=== PATIENT | female | born 1930 | race Caucasian/White ===

== ENCOUNTER 2017-07-13 12:00 | Observation (INO) | payer OTHER, MEDICARE ==
[~2017-07-13] VITALS: Ht 152.4 cm; Wt 63.5 kg
--- NOTE | 2017-07-13 12:38 | ED SYNCOPE COMPLAINT ---
History of Present Illness General Chief Complaint: Syncope and Near-Syncope Stated Complaint: BIBA FOR ?SYNCOPE Source: patient, family, EMS Exam Limitations: no limitations Vital Signs & Intake/Output Vital Signs & Intake/Output Vital Signs Date Time Temp Pulse Resp B/P B/P Pulse O2 O2 Flow FiO2 Mean Ox Delivery Rate 07/14 1220 64 150/80 07/14 0832 64 120/64 07/14 0638 98.5 65 18 112/62 95 Room Air 07/13 2337 98.4 68 16 162/80 96 Room Air 07/13 2017 98.8 70 18 132/80 94 Room Air 07/13 1926 97.8 61 20 171/70 96 Room Air ED Intake and Output 07/14 0000 07/13 1200 Intake Total 200 Output Total Balance 200 Intake, Oral 200 Patient 140 lb Weight Weight Estimated Measurement Method Allergies Coded Allergies: No Known Allergies (07/13/17) Reconcile Medications Atorvastatin Calcium 10 MG TABLET 1 TAB PO QPM CHOLESTEROL (Reported) Calcium Carbonate/Vitamin D3 (Calcium 500 + D Tablet) (Unknown Strength) TABLET (Unknown Dose) PO DAILY SUPPLEMENT (Reported) Dipyridamole W/ Aspirin (Aggrenox 25 MG-200 MG Capsule) 25 MG-200 MG CPMP.12HR 1 CAP PO BID Blood thin (Reported) Metoprolol Succinate 25 MG TAB 1 TAB PO DAILY HEART/BP (Reported) Mirtazapine 15 MG TABLET 1 TAB PO QPM SLEEP (Reported) Triage Note: 87 Y/O FEMALE BIBA FROM HOME FOR EVAL OF ? SYNCOPE (PER EMS). PER TELECOMMUNICATIONS ANALYST, PT WAS "SITTING AT TABLE AND HAD LOC WITNESSED BY FAMILY". PT ONLY SPEAKS [facility]. ARRIVES ALERT, SMILING STATING "HOW ARE YOU. IM OK". NO SIGNS PAIN OR DISCOMFORT NOTED. NO SIGNS TRAUMA NOTED. EQUAL FACIAL SYMMETRY APPRECIATED. AWAITING FAMILY FOR FURTHER INFORMATION/HISTORY AWAITING EVAL. Triage Nurses Notes Reviewed? yes Timing: single episode today Context: WHILE COOKING AT HOME Loss of Consciousness: no loss of consciousness HPI: Patient presents for evaluation of a fainting episode that occurred shortly before arrival. According the family the patient was at home cooking breakfast when she began to "tip" to one side. She became very pale and also experienced a transient facial droop. Her family was able to catch her before she fell and she was brought to the couch where she began feeling better and essentially returned back to baseline. The whole episode lasted about 2-3 minutes. The patient has poor recall of the episode but apparently did not suffer any chest pain heart palpitations or other symptoms prior to the onset of her syncope. There is no associated tremors as noted by the family. He does have a past history of heart valve disease with a known murmur. She was evaluated on a routine visit with a primary care physician yesterday. Past History Travel History Traveled to [place] past 21 day No Medical History Any Pertinent Medical History? see below for history Neurological: CVA EENT: NONE Cardiovascular: hypertension, ? IRREGULAR HEART BEAT PER EMS ? 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 No Review of Systems Review of Systems Constitutional: Reports: no symptoms. EENTM: Reports: no symptoms. Respiratory: Reports: no symptoms. Cardiovascular: Reports: syncope. GI: Reports: no symptoms. Genitourinary: Reports: no symptoms. Musculoskeletal: Reports: no symptoms. Skin: Reports: no symptoms. Neurological/Psychological: Reports: no symptoms. All Other Systems: Reviewed and Negative Physical Exam Physical Exam Cranial Nerves: SEE BELOW Comments: Gen.: Well-nourished, well-developed, no acute respiratory distress. Head: Normocephalic, atraumatic. Eyes: Normal inspection bilaterally Ears: Normal inspection bilaterally Nose: Normal inspection Throat/mouth : Moist mucosa Neck: Supple, full range of motion, no goiter, decreased left carotid pulse, no carotid bruits Heart: Regular rate and rhythm, crescendo decrescendo pansystolic murmur throughout the precordium Lungs: Clear to auscultation bilaterally with normal air entry Chest: Nontender Back: Normal range of motion Abdomen: Soft, nontender, nondistended, normal bowel sounds Extremities: Normal range of motion grossly, equal radial pulses, no cyanosis clubbing or edema Neurologic: Cranial nerves grossly intact, speech is clear Skin: warm and dry Psychiatric: Calm, cooperative, no apparent delusions or hallucinations Core Measures ACS in differential dx? No CVA/TIA Diagnosis: No Sepsis Present: No Sepsis Focused Exam Completed? No Progress Differential Diagnosis: aortic valve, orthostatic syncope, seizure, vasodepressor syncope Plan of Care: Orders Procedure Date/time Status Heart Healthy Diet 07/14 B Active Change service to 07/14 0729 Active CBC WITHOUT DIFFERENTIAL 07/14 0600 Complete BASIC ELECTROLYTES PLUS BUN&CR 07/14 0600 Complete LIPID PANEL 07/14 0120 Complete Nursing Misc 07/14 0112 Active TROPONIN LEVEL 07/14 0100 Complete EKG 07/14 0100 Active Discharge Patient 07/14 UNK Active Lab Add-on Test 07/14 UNK Active MISTAKE 07/14 UNK Active ELECTROENCEPHALOGRAM 07/14 UNK Active ECHOCARDIOGRAM 07/14 UNK Active Pathway - chart 07/13 2232 Active Teach/Educate 07/13 2010 Active Pain Treatment and Response 07/13 2010 Active Nutritional Intake, Monitor 07/13 2010 Active Isolation 07/13 2010 Active Patient Care Conference 07/13 2010 Active Activity/Ambulation 07/13 2010 Active EKG 07/13 1928 Active TOTAL IRON BINDING CAPACITY 07/13 1925 Complete FERRITIN 07/13 1925 Complete SERUM IRON 07/13 1925 Complete TROPONIN LEVEL 07/13 1915 Complete Patient Data 07/[address] in observation 07/13 1742 Active Misc Message 07/13 1742 Active ED Holding Orders 07/13 1742 Active Vital Signs 07/13 1742 Active Code Status 07/13 1742 Active PROLACTIN 07/13 1303 Complete Intake & Output 07/13 1209 Active Lab Add-on Test 07/13 UNK Active Current Medications Sig/Solomon Start time Last Medication Dose Stop Time Status Admin Oxycodone HCl 5 MG Q6H PRN 07/13 2245 CAN (Roxicodone) Laboratory Tests 07/14/17 0651: Anion Gap 12, Estimated GFR 52 L, BUN/Creatinine Ratio 33.0 H, TSH &T3 &Free T4 Intrp 0.770, CBC w Diff NO MAN DIFF REQ, RBC 3.29 L, MCV 94.9, MCH 31.6 H, RDW 13.9, MPV 8.6, Gran % 64.4, Lymphocytes % 22.5, Monocytes % 9.9 H, Eosinophils % 2.7, Basophils % 0.5, Absolute Granulocytes 3.7, Absolute Lymphocytes 1.3, Absolute Monocytes 0.6, Absolute Eosinophils 0.2, Absolute Basophils 0, PUBS MCHC 33.3 07/14/17 0120: Troponin I 0.03, Triglycerides 96, Cholesterol 119, LDL Cholesterol, Calc 46 L, HDL Cholesterol 54, Cholesterol/HDL Ratio 2 07/13/17 1925: Iron 38, TIBC 292, Ferritin 97.1, Troponin I 0.02 Diagnostic Imaging: Discussed w/RAD: Radiology Read, CT Scan. Radiology Impression: PATIENT: LASHAUN CLARK PRESENT AGE: 87 PATIENT ACCOUNT NO: [id number] : 30 LOCATION: [facility], [place] ORDERING PHYSICIAN: Jonathan Romano MD SERVICE DATE: 07/13/17 EXAM TYPE : CAT - CT HEAD WO IV CONTRAST EXAMINATION: CT HEAD WITHOUT CONTRAST CLINICAL INFORMATION: Near syncope. History of cardiac arteries. Assess for CVA or mass. COMPARISON: CT scans of the head 07/25/2008 and 02/29/2008. TECHNIQUE: Contiguous axial imaging was performed from the skull base to vertex without intravenous administration of contrast. DLP: 620.91 mGy-cm FINDINGS: There is no evidence of acute intracranial hemorrhage or territorial infarction. No abnormal mass effect or midline shift is seen. Sanchez to white matter differentiation is well preserved. No extra-axial fluid collections are identified. There is mild increase in the prominence of the ventricles without commensurate sulcal prominence when compared to the prior studies which raises the possibility of normal pressure hydrocephalus in the correct clinical setting. There are areas of low attenuation in the right caudate head consistent with sequelae of chronic lacunar infarcts, with ex vacuo dilatation of the anterior horn of the right lateral ventricle, demonstrated on prior imaging. There is low-attenuation in the posterior right basal ganglia consistent with an old infarct. There have been bilateral lens extractions. There are extensive atheromatous calcifications of the cavernous internal carotid arteries bilaterally. There are no acute osseous findings. There are degenerative changes of the bilateral temporomandibular joints. The soft tissues are normal. The mastoid air cells and visualized portions of the paranasal sinuses are well aerated. IMPRESSION: 1. There is interval increase in the prominence of the ventricles without commensurate sulcal prominence, raising the possibility of normal pressure hydrocephalus in the correct clinical setting. 2. There are sequelae of chronic infarcts in multiple areas as described above. 3. There are no acute bleeds or territorial infarcts. DICTATED BY: Carson Chaudhari MD DATE/TIME DICTATED:07/13/171344 BLUE LINE OPERATOR:ADRIÁN DATE/TIME TRANSCRIBED:07/13/171344 CONFIDENTIAL, DO NOT COPY WITHOUT APPROPRIATE AUTHORIZATION. <Electronically signed in Other Vendor System> SIGNED BY: Carson Chaudhari MD 07/13/17 1357 CXR Impression: PATIENT: LASHAUN CLARK PRESENT AGE: 87 PATIENT ACCOUNT NO: [id number] : 30 LOCATION: [facility], [place] ORDERING PHYSICIAN: Jonathan Romano MD SERVICE DATE: 07/13/17 EXAM TYPE: RAD - XRY-PORTABLE CHEST XRAY EXAMINATION: XR PORTABLE CHEST CLINICAL INFORMATION: Near syncope. COMPARISON: Chest radiograph done on 07/25/2008. TECHNIQUE: Portable frontal view of the chest was obtained. FINDINGS: Both lung ventura are symmetrically expanded and appear clear. The cardiomediastinal silhouette is within normal limits. There is no pleural effusion present. Multiple surgical clips are seen projecting at infraaxillary region bilaterally, unchanged. Soft tissue calcifications are seen projecting overlying the right humeral head, most consistent with calcific rotator cuff tendinitis versus bursitis or combination thereof. The visualized upper abdomen is unremarkable. IMPRESSION: No acute cardiopulmonary disease. DICTATED BY: Ruslan Dee MD DATE/TIME DICTATED:1352 BLUE LINE OPERATOR:ADRIÁN DATE/TIME TRANSCRIBED:07/13/171352 CONFIDENTIAL, DO NOT COPY WITHOUT APPROPRIATE AUTHORIZATION. <Electronically signed in Other Vendor System> SIGNED BY: Ruslan Dee MD 07/13/17 0291 Comments: 15:23 pt updated. awaiting call back from dr reynaga regarding her hx of valve disease. 07/13/2017 5:23:35 PM I have been unable to contact Dr. Reynaga regarding this patient's history of valve disease. I've discussed her case with Dr. Meng the patient will be admitted to telemetry unit. Departure Departure Disposition: STILL A PATIENT Condition: Stable Clinical Impression Primary Impression: Syncope Qualifiers: Syncope type: unspecified Qualified Code: R55 - Syncope and collapse Referrals: Mateo Pagan MD (PCP/Family) Departure Forms: Customer Survey General Discharge Information Observation Note Spoke With: Donny RENAE,Lay [address] Patient In: Non-ED OBS Care Area Rationale for Observation: My rational for observation is as follows patient suffered what appears to have been a brief syncopal episode while at home. He has a known history of heart valve disease with a pansystolic murmur on physical examination. This raises the possibility that her episode was due to a cardiac dysrhythmia or sudden drop in blood pressure secondary to medical valve stenosis. I feel she requires hospitalization under the circumstances or continuous cardiac monitoring and cardiology evaluation. Echocardiogram should be considered as well to assess valvular function. I don't feel the patient is a good candidate for outpatient management under the circumstances as she would be a potential risk of injury if she were to have any additional syncopal episodes.
[2017-07-13 13:14] LABS: ABSOLUTE BASOPHIL COUNT 0 /CUMM (0.0-0.2); ABSOLUTE EOSINOPHIL COUNT 0.1 /CUMM (0.0-0.7); ABSOLUTE GRANULOCYTE CT 4.8 /CUMM (1.4-6.5); ABSOLUTE LYMPH COUNT 0.8 /CUMM (1.2-3.4); ABSOLUTE MONOCYTE COUNT 0.6 /CUMM (0.10-0.60); BASOPHIL % 0.3 % (0.0-2.0); EOSINOPHIL % 1.7 % (0-5); GRANULOCYTE % 75.4 % (42.2-75.2); HEMATOCRIT 34.9 % (37-47); MEAN CORPUSCULAR HGB 31.3 PG (27.0-31.0); MEAN CORPUSCULAR VOLUME 94.7 FL (81.0-99.0); MEAN PLATELET VOLUME 7.9 FL (7.4-10.4); PLATELET COUNT 198 /CUMM (130-400); RBC DISTRIBUTION WIDTH 13.9 % (11.5-14.5); RED BLOOD CELL CT 3.68 /CUMM (4.20-5.40); WHITE BLOOD CELL COUNT 6.3 /CUMM (4.8-10.8)
--- NOTE | 2017-07-13 13:57 | CT SCAN REPORT ---
EXAMINATION: CT HEAD WITHOUT CONTRAST CLINICAL INFORMATION: Near syncope. History of cardiac arteries. Assess for CVA or mass. COMPARISON: CT scans of the head 07/25/2008 and 02/29/2008. TECHNIQUE: Contiguous axial imaging was performed from the skull base to vertex without intravenous administration of contrast. DLP: 620.91 mGy-cm FINDINGS: There is no evidence of acute intracranial hemorrhage or territorial infarction. No abnormal mass effect or midline shift is seen. Sanchez to white matter differentiation is well preserved. No extra-axial fluid collections are identified. There is mild increase in the prominence of the ventricles without commensurate sulcal prominence when compared to the prior studies which raises the possibility of normal pressure hydrocephalus in the correct clinical setting. There are areas of low attenuation in the right caudate head consistent with sequelae of chronic lacunar infarcts, with ex vacuo dilatation of the anterior horn of the right lateral ventricle, demonstrated on prior imaging. There is low-attenuation in the posterior right basal ganglia consistent with an old infarct. There have been bilateral lens extractions. There are extensive atheromatous calcifications of the cavernous internal carotid arteries bilaterally. There are no acute osseous findings. There are degenerative changes of the bilateral temporomandibular joints. The soft tissues are normal. The mastoid air cells and visualized portions of the paranasal sinuses are well aerated. IMPRESSION: 1. There is interval increase in the prominence of the ventricles without commensurate sulcal prominence, raising the possibility of normal pressure hydrocephalus in the correct clinical setting. 2. There are sequelae of chronic infarcts in multiple areas as described above. 3. There are no acute bleeds or territorial infarcts.
--- NOTE | 2017-07-13 14:01 | RADIOLOGY REPORT ---
EXAMINATION: XR PORTABLE CHEST CLINICAL INFORMATION: Near syncope. COMPARISON: Chest radiograph done on 07/25/2008. TECHNIQUE: Portable frontal view of the chest was obtained. FINDINGS: Both lung ventura are symmetrically expanded and appear clear. The cardiomediastinal silhouette is within normal limits. There is no pleural effusion present. Multiple surgical clips are seen projecting at infraaxillary region bilaterally, unchanged. Soft tissue calcifications are seen projecting overlying the right humeral head, most consistent with calcific rotator cuff tendinitis versus bursitis or combination thereof. The visualized upper abdomen is unremarkable. IMPRESSION: No acute cardiopulmonary disease.
[2017-07-13] MEDS ORDERED: ATORVASTATIN CA10 M1 PO (17:49)
[2017-07-13] MEDS ORDERED: HYDROCHLOROTH12.5 M2 PO (17:50)
[2017-07-13] MEDS ORDERED: ASPIRIN EC81 M1 PO (17:50)
[2017-07-13] MEDS ORDERED: POTASSIUM CHLO10 ME4 PO (17:50)
[2017-07-13] MEDS ORDERED: MIRTAZAPINE15 M2 PO (17:50)
[2017-07-13] MEDS ORDERED: METOPROLOL SUCC25 M1 PO (17:51)
[2017-07-13] MEDS ORDERED: CALCIUM 500 +1 EAC5 PO (17:55)
--- NOTE | 2017-07-13 18:12 | History & Physical ---
Mahogany RENAE,Alfonso 07/13/17 1812: General Information and HPI History of Present Illness: is an 87-year-old female with past medical history of CVA, hypertension, and bilateral breast cancer in [id number] status post chemotherapy who presents with syncope. Patient speaks [place]uran primarily. Per the daughter, the patient was cooking breakfast this morning when she noticed that the patient was starting to lean over. She called out to her but she was nonresponsive. The daughter caught her and she did not fall. The daughter and her then dragged the patient to a chair and she remained unresponsive for to 3 minutes. Her eyes were closed. They activated EMS. After the event, she was confused for about 10-15 minutes. The patient denies any prodrome and does not remember the event. The daughter does indicate that she has had poor by mouth intake recently and poor appetite. The patient did receive a flu shot and has good compliance with medications. There were sick contacts about 2 weeks ago but none recently. No chest pain, shortness of breath, nausea, vomiting, bowel pain, or dysuria. Allergies/Medications Allergies: Coded Allergies: No Known Allergies (07/13/17) Home Med list Atorvastatin Calcium 10 MG TABLET 1 TAB PO QPM CHOLESTEROL (Reported) Calcium Carbonate/Vitamin D3 (Calcium 500 + D Tablet) (Unknown Strength) TABLET (Unknown Dose) PO DAILY SUPPLEMENT (Reported) Dipyridamole W/ Aspirin (Aggrenox 25 MG-200 MG Capsule) 25 MG-200 MG CPMP.12HR 1 CAP PO BID Blood thin (Reported) Hydrochlorothiazide 12.5 MG TABLET 1 TAB PO QAM DIURETIC/BP (Reported) Metoprolol Succinate 25 MG TAB 1 TAB PO DAILY HEART/BP (Reported) Mirtazapine 15 MG TABLET 1 TAB PO QPM SLEEP (Reported) Potassium Chloride 10 MEQ TABLET.ER 1 TAB PO QAM SUPPLEMENT (Reported) Past History Travel History Traveled to [place] past 21 day No Medical History Neurological: CVA EENT: NONE Cardiovascular: hypertension, ? IRREGULAR HEART BEAT PER EMS ? 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 EENTM: Reports: no symptoms. Cardiovascular: Reports: no symptoms. Respiratory: Reports: no symptoms. GI: Reports: see HPI. Genitourinary: Reports: no symptoms. Musculoskeletal: Reports: no symptoms. Skin: Reports: no symptoms. Neurological/Psychological: Reports: see HPI. Hematologic/Endocrine: Reports: no symptoms. Immunologic/Allergic: Reports: no symptoms. All Other Systems: Reviewed and Negative Exam & Diagnostic Data Last 24 Hrs of Vital Signs/I&O Vital Signs Date Time Temp Pulse Resp B/P B/P Pulse O2 O2 Flow FiO2 Mean Ox Delivery Rate 07/13 1452 98.8 61 20 160/80 97 Room Air 07/13 1322 98 Room Air 07/13 1316 62 20 172/78 97 Room Air 07/13 1211 97.6 61 18 172/74 95 Room Air Intake & Output 07/13 1600 07/13 0800 07/13 0000 Intake Total Output Total Balance Patient 140 lb Weight Weight Estimated Measurement Method Physical Exam General Appearance Alert, Oriented X3, Cooperative, No Acute Distress HEENT difficult to assess eye movements. Cardiovascular irregular, systolic murmur Lungs Clear to Auscultation, Normal Air Movement Abdomen Normal Bowel Sounds, Soft, No Tenderness Neurological Normal Speech, Strength at 5/5 X4 Ext, Normal Tone, Sensation Intact, Cranial Nerves 3-12 NL Extremities Normal Pulses, nonpitting edema Last 24 Hrs of Labs/Vick: Laboratory Tests 07/13/17 1303: Anion Gap 12, Estimated GFR 47 L, BUN/Creatinine Ratio 37.3 H, Glucose 100 H, Calcium 9.4, Total Bilirubin 0.7, AST 26, ALT 36, Alkaline Phosphatase 77, Troponin I 0.01, Total Protein 6.6, Albumin 4.0, Globulin 2.6, Albumin/Globulin Ratio 1.5, CBC w Diff NO MAN DIFF REQ, RBC 3.68 L, MCV 94.7, MCH 31.3 H, RDW 13.9, MPV 7.9, Gran % 75.4 H, Lymphocytes % 13.1 L, Monocytes % 9.5 H, Eosinophils % 1.7, Basophils % 0.3, Absolute Granulocytes 4.8, Absolute Lymphocytes 0.8 L, Absolute Monocytes 0.6, Absolute Eosinophils 0.1, Absolute Basophils 0, PUBS MCHC 33.0 Assessment/Plan Assessment: is an 87-year-old female with past medical history of CVA, hypertension, and bilateral breast cancer in [id number] status post chemotherapy who presents with syncope. On presentation, vital signs were T 98.8, HR 61, RR 20, BP 160/78, saturating 97 % on room air. Laboratories are significant for white blood cell count 6.3, 75.4 % granulocytes, hemoglobin 11.5, normal BEP, negative LFTs, troponin 0.01. Chest x-ray and head CT were negative for any acute abnormalities. She will be placed in observation on telemetry and treated for the following problems: 1. Syncope 2. Normocytic anemia #Syncope: The differential diagnosis for this includes arrhythmia, seizure, , and neurocardiogenic syncope. The patient has history of conduction abnormalities and is on multiple medications that can affect it. This history includes no prodrome but she was confused afterwards and this may have been postictal state. She has had poor by mouth intake recently and is dehydrated. -Gentle IV fluid hydration -Cardiology consult -EKG and troponins 3 -TTE -Telemetry monitoring -Metoprolol 12.5 once a day -Prolactin -Consider EEG/MRI/Neuro consult -Hold HCTZ #Normocytic anemia: Mild. -iron studies #Chronic medical problems: -Continue home atorvastatin, aspirin, mirtazapine, hydrochlorothiazide, vitamin D, calcium DVT prophylaxis with enoxaparin Regular diet Full code As Ranked By This Provider Problem List: 1. Syncope Qualifiers Syncope type: unspecified Qualified Code: R55 - Syncope and collapse Core Measures/Misc (03/13) Acute Coronary Syndrome ACS Diagnosis: No Congestive Heart Failure Congestive Heart Failure Diagnosis No Cerebrovascular Accident CVA/TIA Diagnosis: No VTE (View Protocol) VTE Risk Factors Age>40 No Mechanical VTE Prophylaxis d/t N/A MechProphylax Ordered No VTE Pharm Prophylaxis d/t NA PharmProphylax ordered Sepsis (View protocol) Sepsis Present: No Nacho RENAE,Isaiah 07/13/172037: Resident Review Statement Resident Statement: examined this patient, discussed with internet sales consultant, agreed with internet sales consultant Other Findings: This is a 87-year-old [place]uran speaking lady with a past medical history significant for cardiac conduction abnormality,murmurs, reasons for evaluation of witnessed syncopal event. The entire history was obtained via translation with assistance of patient's daughter and son. His reported that earlier today while patient was in the kitchen cooking, she started slanting sideways and a family member quickly came to her aid by breaking her fall. She is reported to have had a two-minute episode of loss of consciousness. There was no report of shaking or tremor-like activity, tongue biting, urinary or bowel incontinence, however there was a short transit period of confusion after regaining consciousness. The patient does deny any prodromal symptoms including dizziness , chest pain,sob, or palpitation. When asked for more details the daughter related to the attending physician that the patient grasped tightly to a rail during the episode and family member had a hard time removing her vocational nurse lvn from the handle. Patient is reported to have had a recent decrease in fluid intake, with Tea and one of them most frequent fluid that she drank. Also noted to be on hydrochlorothiazide. No report of any fever, chills, cough, recent URI, sick contacts or recent travel. At the ED she was noted to be orthostatic positive. Impression * Syncopal event. They history of decreased fluid intake, hydrochlorothiazide use and laboratory evidence of concentration is suggestive of orthostatic hypotension being the possible cause of patient's syncope. However the lack of prodromal symptoms and a significant past medical history of cardiac conduction abnormalities (LBB) is concerning for a cardiac etiology as the possible cause. A seizure episode is one of the possibility given the daughter's account of patient having a very strong vocational nurse lvn on the rail prior to LOC could suggest the patient had a seizure episode ( tonic-clonic movements?), The lack of visible tremors, no bowel/urinary incontinence, and positive orthostats go against seizures. The radiological findings of interval increase in the prominence of the ventricles raises the possibility of normal pressure hydrocephalus which could mimick seizure or syncopal evidence. Patient is not mobile enough, therefore family cannot give a history of whether patient has a gait and balance abnormality which could suggest PNH, there is also no report of urinary incontinence or dementia. She has a history of murmur which on physical examination showed a systolic aortic stenosis which can be a cause of syncope. Pulmonary embolism is also one of the most common undereported symptoms of syncope, however given the lack of respiratory symptoms and hemodynamically stability, this is very low in the differential. * Anemia with MCV suggesting normocytic. No prior comparison to see if this is an acute or chronic status. * History of chronic diseases: Hyperlipidemia, insomnia, remote history of CVA. Plan Place in telemetry obs for close cardiac monitoring Initial troponin negative, will trend 2 more times with EKG to rule out ACS Will discontinue hydrochlorothiazide and decrease metoprolol from 25 mg to 12.5 Echocardiogram tomorrow morning to assess for valvular pathologies Will await further cardiology reccs Gentle hydration of NS at 75ml/hr 1000ml bag x1. Will also encourage oral fluid intake Will obtain MRI, prolactin level, EEG and neuro consult for possible seizure DVT PPX: Benedict Em 07/13/17 3536: Attending MD Review Statement Attending Statement Attending MD Statement: examined this patient, discuss w/resident/PA/E/M ENGINEER, agreed w/resident/PA/E/M ENGINEER, discussed with family, reviewed EMR data (avail), reviewed images, amended to note Attending Assessment/Plan: CC: Passed out PMH: CAD, history of CVA with no residual weakness, HTN, HLD, multiple PVCs and LBBB, history of bilateral breast cancer, History is mostly obtained from patient's daughter, patient responds appropriately but does not speak Pakistani. According to daughter, patient was making dietary for pancake, standing in kitchen next to her when she saw her mother was leaning towards one side, she shouted for help for her and both of them supported her from falling but patient was strongly holding something on the kitchen stove with the very firm vocational nurse lvn that they could not lay her on the floor. The vocational nurse lvn was so firm that patient scratched her fingers with her own nails. After short duration they could release her fiber technician and made her lie down when she was slumped. She was unresponsive throughout this event, only woke up when EMS arrived. They did not notice any seizure-like activity, tongue bite, bladder or bowel incontinence. Patient did not complain of any chest pain, palpitation or dizziness since morning, before the episode. Patient had similar episode of passing out many years back for which she was admitted in [facility] but no other episode in between. Vitals: T max 98.8, pulse in 60s, RR 18, blood pressure 172/74, saturating well on room air. On exam: A, cooperative, difficulty to follow instructions secondary to language barrier, no acute distress, neck supple, JVD normal, no lymphadenopathy, mucosa moist, no focal neurological deficit, no dependent edema, no obvious skin rashes or inflammation CVS: S1-S2, irregular, systolic murmur in aortic area, diastolic murmur in mitral area. RS: Clear to auscultate bilaterally. Abdomen: Soft, NT, ND, bowel sounds present. Labs: Hemoglobin 11.5 (no comparison available) otherwise CBC unremarkable, sodium 144, potassium 4.3, chloride 103, bicarbonate 28, BUN 41, creatinine 1.1, glucose 100, calcium 9.4, LFT unremarkable, troponin 0.01 ACC: Multiple PVCs, LBBB CXR: No acute cardiopulmonary disease CT head: 1. There is interval increase in the prominence of the ventricles without commensurate sulcal prominence, raising the possibility of normal pressure hydrocephalus in the correct clinical setting. 2. There are sequelae of chronic infarcts in multiple areas as described above. 3. There are no acute bleeds or territorial infarcts. Assessment and plan 87-year-old female presented in ER for an episode of passing out. History is mostly obtained from patient's daughter as patient is [place]uran speaking. Her daughter noticed that when patient was standing in the kitchen trying to make something she was leaning towards one side, became unresponsive at that point. With her 's help she was trying to make her lie down and did not prevented the fall but patient was holding something on the kitchen extremely tightly and could not let go of the vocational nurse lvn. Once we could release the vocational nurse lvn patient slumped. Her breathing was intact, EMS was called and patient only woke up after EMS was there. Patient did not have any prodromal symptoms, no bowel bladder incontinence, tongue bite or seizure-like activity. But given the form handgrips that she had, she scratched her fingers with her own nails there is a possibility of seizure as the cause of this unresponsive episode. At the same time it could be syncope which needs further evaluation given her conduction abnormalities with multiple PVCs and left bundle branch block. Patient had similar episode once in the past, at that time patient's metoprolol was discontinued. Recently it was restarted again for her valvular disease/ arrhythmias (daughter is not clear). Examination unremarkable except systolic murmur in aortic area, possibly aortic stenosis which could be another cause for syncope. Also that patient had orthostatic vitals positive, mild increase in BUN and decreased by mouth intake last few days which may be causing dehydration/ hypovolemia causing syncope. Given this, she needs further evaluation and benefit from observation on telemetry floor. + Syncope + History of CAD, history of CVA with no residual weakness, HTN, HLD, multiple PVCs and LBBB, history of bilateral breast cancer - Place in observation on telemetry - Continuous telemetry monitoring - Serial troponin and EKG - Orthostatic vitals in am - 2-D echocardiogram in a.m. - Cardiology consult appreciated - Gentle hydration 75 mL normal saline for 1 L - Add prolactin to sample in lab - EEG and MRI brain in morning - Consider neurology consult, for suspected new onset seizure and questionable NPH - Hold HCTZ restart from tomorrow, decreased the dose of metoprolol as suggested by cardiology, continue rest of her medications - DVT prophylaxis - Adequate pain control
--- NOTE | 2017-07-13 18:55 | Cons- Cardiology ---
General Information and HPI Consulting Request Date of Consult: 07/13/17 Requested By: Lay Hines MD Reason for Consult: syncope Source of Information: patient, family Exam Limitations: no limitations History of Present Illness: I was asked by Dr. Hines to evaluate patient for syncope. 87 year old female with h/o LBBB, CAD, CVA, HTN, HLP, PVC's, mild cardiomyopathy , breast cancer, right parotid gland tumor presents with episode of syncope. She was standing in the kitchen preparing food when she suddenly started leaning to the right and stopped responding. Her son in law had to hold her, otherwise she would fall down. According to daughter her face was pasty and she was unconscious for about a minute. She did not feel dizzy and she did not remember the episode. Next thing she remenbers is EMS standing next to her talking to her. No chest pain, palpitations, dizziness, seizure activity noted. She developed similar but milder episoded 3 weeks ago while sitting, her daughter talked to her but she did not respond for about a minute. She reportedly has been eating and drinking less fluids recently. Allergies/Medications Allergies: Coded Allergies: No Known Allergies (07/13/17) Home Med List: Aspirin (Ecotrin*) 81 MG TABLET.DR 1 TAB PO BID HEART/BLOOD (Reported) Atorvastatin Calcium 10 MG TABLET 1 TAB PO QPM CHOLESTEROL (Reported) Calcium Carbonate/Vitamin D3 (Calcium 500 + D Tablet) (Unknown Strength) TABLET (Unknown Dose) PO DAILY SUPPLEMENT (Reported) Hydrochlorothiazide 12.5 MG TABLET 1 TAB PO QAM DIURETIC/BP (Reported) Metoprolol Succinate 25 MG TAB 1 TAB PO DAILY HEART/BP (Reported) Mirtazapine 15 MG TABLET 1 TAB PO QPM SLEEP (Reported) Potassium Chloride 10 MEQ TABLET.ER 1 TAB PO QAM SUPPLEMENT (Reported) Review of Systems Review of Systems Constitutional: Denies: no symptoms, see HPI, chills, diaphoresis, fever, malaise, weakness, unexplained weight loss. EENTM: Denies: no symptoms, see HPI, blurred vision, double vision, visual changes, eye pain, eye drainage, eye tearing, icterus, ear discharge, ear pain, ear redness, hearing changes, nasal congestion, epistaxis, nasal pain, throat pain, throat swelling, mouth pain, tooth pain. Cardiovascular: Reports: syncope. Denies: no symptoms, see HPI, chest pain, edema, orthopena, palpitations, peripheral edema. Respiratory: Denies: no symptoms, see HPI, cough, hemoptysis, orthopnea, short of breath, sputum production, stridor, wheezing. GI: Denies: no symptoms, see HPI, abdominal pain, bloating, constipation, diarrhea, distention, bowel incontinence, melena, nausea, bloody stool, changes in stool, vomiting, steatorrhea. Genitourinary: Denies: no symptoms, see HPI, discharge, dysuria, frequency, hematuria, hesitation, nocturia, pain, urgency. Musculoskeletal: Denies: no symptoms, see HPI, back pain, gout, joint pain, joint swelling, muscle pain, muscle stiffness, neck pain. Skin: Denies: no symptoms, see HPI, cysts, change in skin color, change in hair/nails, dryness, erythema, jaundice, lesions, lymphangitis, lumps, moles, rash. Neurological/Psychological: Denies: no symptoms, see HPI, anxiety, ataxia, cognitive dysfunction, confusion, depressed, dementia, emotional problems, headache, numbness, paresthesia, pre- existing deficit, petit mal seizures, tingling, tremors, tonic-clonic seizures, unable to move lower ext, unable to move upper ext, weakness, other. Hematologic/Endocrine: Denies: no symptoms, see HPI, bruising, bleeding, polyuria, polydipsia, other. Immunologic/Allergic: Denies: no symptoms, see HPI, splenectomy, HIV/AIDS, lymphadenopathy, other. Past History Travel History Traveled to [place] past 21 day No Medical History Neurological: CVA EENT: NONE Cardiovascular: hypertension, ? IRREGULAR HEART BEAT PER EMS ? 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 ~~ Appearance- well developed NAD HEENT-PERRLA Neck-JVP normal, no bruit Lungs-clear bilaterally Heart S1S2 regular, 2/6 systolic ejection murmur in precordium Abdomen-soft, not tender, not distended, BS+, no organomegaly, no masses Extr-no edema, 2+pulses, no cyanosis Neuro-AAOx3, non focal Vascular-good distal perfusion, 2+ distal pulses skin-no rash Labs/Vick Results: Laboratory Tests 07/13 1303 Chemistry Sodium (137 - 145 mmol/L) 144 Potassium (3.5 - 5.1 mmol/L) 4.3 Chloride (98 - 107 mmol/L) 103 Carbon Dioxide (22 - 30 mmol/L) 28 Anion Gap (5 - 16) 12 BUN (7 - 17 mg/dL) 41 H Creatinine (0.5 - 1.0 mg/dL) 1.1 H Estimated GFR (>60 ml/min) 47 L BUN/Creatinine Ratio (7 - 25 %) 37.3 H Glucose (65 - 99 mg/dL) 100 H Calcium (8.4 - 10.2 mg/dL) 9.4 Total Bilirubin (0.2 - 1.3 mg/dL) 0.7 AST (14 - 36 U/L) 26 ALT (9 - 52 U/L) 36 Alkaline Phosphatase (<127 U/L) 77 Troponin I (< 0.11 ng/ml) 0.01 Total Protein (6.3 - 8.2 g/dL) 6.6 Albumin (3.5 - 5.0 g/dL) 4.0 Globulin (1.9 - 4.2 gm/dL) 2.6 Albumin/Globulin Ratio (1.1 - 2.2 %) 1.5 Hematology CBC w Diff NO MAN DIFF REQ WBC (4.8 - 10.8 /CUMM) 6.3 RBC (4.20 - 5.40 /CUMM) 3.68 L Hgb (12.0 - 16.0 G/DL) 11.5 L Hct (37 - 47 %) 34.9 L MCV (81.0 - 99.0 FL) 94.7 MCH (27.0 - 31.0 PG) 31.3 H RDW (11.5 - 14.5 %) 13.9 Plt Count (130 - 400 /CUMM) 198 MPV (7.4 - 10.4 FL) 7.9 Gran % (42.2 - 75.2 %) 75.4 H Lymphocytes % (20.5 - 51.1 %) 13.1 L Monocytes % (1.7 - 9.3 %) 9.5 H Eosinophils % (0 - 5 %) 1.7 Basophils % (0.0 - 2.0 %) 0.3 Absolute Granulocytes (1.4 - 6.5 /CUMM) 4.8 Absolute Lymphocytes (1.2 - 3.4 /CUMM) 0.8 L Absolute Monocytes (0.10 - 0.60 /CUMM) 0.6 Absolute Eosinophils (0.0 - 0.7 /CUMM) 0.1 Absolute Basophils (0.0 - 0.2 /CUMM) 0 PUBS MCHC (33.0 - 37.0 G/DL) 33.0 Diagnostic Data EKG Results SR, 60 bpm, old LBBB CXR Results NO acute disease Other Results CT head-old infarcts, ? NPH Assessment/Plan Assessment/Plan 87 year old female with h/o LBBB, CAD, CVA, HTN, HLP, PVC's, mild cardiomyopathy , breast cancer, right parotid gland tumor presents with episode of syncope. She reports decreased oral food and fluid intake, mildly orthostatic in ER, increased BUN suggestive of volume contraction. This can explain syncopal episode but she had not prodromal symptoms and she has significant conduction system disease. Need to watch for transient CHB. Plan: observation in telemetry echo troponins x3 q8 hours stop HCTZ and K decrease metoprolol to 12.5 mg qd encourage oral food and fluid intake will schedule outpatient 30 day event monitor Discussed with daughter, housestaff. Consult Acknowledgment - Thank you for your consult request.
[2017-07-13 20:17] VITALS: BP 132/80
[2017-07-13 23:37] VITALS: BP 162/80
[2017-07-14 06:38] VITALS: BP 112/62
--- NOTE | 2017-07-14 07:35 | PN- Cardiology ---
Subjective Subjective: No chest pain, dyspnea or dizziness overnight Objective Vital Signs and I&Os Vital Signs Date Time Temp Pulse Resp B/P B/P Pulse O2 O2 Flow FiO2 Mean Ox Delivery Rate 07/14 0638 98.5 65 18 112/62 95 Room Air 07/13 2337 98.4 68 16 162/80 96 Room Air 07/13 2017 98.8 70 18 132/80 94 Room Air 07/13 1926 97.8 61 20 171/70 96 Room Air 07/13 1452 98.8 61 20 160/80 97 Room Air 07/13 1322 98 Room Air 07/13 1316 62 20 172/78 97 Room Air 07/13 1211 97.6 61 18 172/74 95 Room Air Intake & Output 07/14 0800 07/14 0000 07/13 1600 07/13 0800 07/13 0000 07/12 1600 Intake Total 700 200 Output Total Balance 700 200 Intake, IV 600 Intake, Oral 100 200 Patient 140 lb 140 lb Weight Weight Estimated Measurement Method Physical Exam: HEENT-PERRLA Neck-JVP normal, no bruits Lungs-clear bilaterally Heart-S1S2 regular, 2/6 ZAYDA at the base Abdomen-soft, not tender, BS+, no organomegaly Extr-mild bilateral chronic edema, 2+ pulses, no cyanosis Neuro-non focal Current Medications: Current Medications Sig/Solomon Start time Last Medication Dose Route Stop Time Status Admin Acetaminophen 650 MG Q6P PRN 07/13 2245 AC PO Aspirin Buffered 81 MG BID 07/13 2199 AC 07/13 PO 2135 Atorvastatin Calcium 10 MG QPM 07/13 2200 AC 07/13 PO 2135 Enoxaparin Sodium 40 MG DAILY 07/13 195 AC 07/13 SC 2135 Metoprolol Succinate 12.5 MG DAILY 07/14 1000 AC PO Mirtazapine 15 MG QPM 07/14 2200 AC PO Oxycodone HCl 5 MG Q6H PRN 07/13 224 CAN PO Oxycodone HCl 10 MG Q6P PRN 07/13 2245 DC PO Sodium Chloride 1,000 ML Q13H 07/13 1915 AC 07/13 IV 07/14 0814 2036 Results Last 48 Hrs of Labs/Mics: Laboratory Tests 07/14/17 0651: Sodium Pending, Potassium Pending, Chloride Pending, Carbon Dioxide Pending, Anion Gap Pending, BUN Pending, Creatinine Pending, BUN/Creatinine Ratio Pending , TSH &T3 &Free T4 Intrp Pending, CBC w Diff Pending, WBC Pending, RBC Pending, Hgb Pending, Hct Pending, MCV Pending, MCH Pending, RDW Pending, Plt Count Pending, MPV Pending, PUBS MCHC Pending 07/14/17 0120: Troponin I 0.03 07/13/17 1925: Iron 38, TIBC 292, Ferritin 97.1, Troponin I 0.02 07/13/17 1303: Anion Gap 12, Estimated GFR 47 L, BUN/Creatinine Ratio 37.3 H, Glucose 100 H, Calcium 9.4, Total Bilirubin 0.7, AST 26, ALT 36, Alkaline Phosphatase 77, Troponin I 0.01, Total Protein 6.6, Albumin 4.0, Globulin 2.6, Albumin/Globulin Ratio 1.5, Prolactin 49.2 H, CBC w Diff NO MAN DIFF REQ, RBC 3.68 L, MCV 94.7, MCH 31.3 H, RDW 13.9, MPV 7.9, Gran % 75.4 H, Lymphocytes % 13.1 L, Monocytes % 9.5 H, Eosinophils % 1.7, Basophils % 0.3, Absolute Granulocytes 4.8, Absolute Lymphocytes 0.8 L, Absolute Monocytes 0.6, Absolute Eosinophils 0.1, Absolute Basophils 0, PUBS MCHC 33.0 Assessment/Plan Assessment/Plan 87 year old female with h/o LBBB, CAD, CVA, HTN, HLP, PVC's, mild cardiomyopathy , breast cancer, right parotid gland tumor presents with episode of syncope. No recurrent events overnight. Telemetry without significant arrhytmia. Was orthostatic in ER. BUN elevated suggestive or volume contraction, on iv fluids now. Plan: check orthostasis echo today keep HCTZ and K continue metoprolol to 12.5 mg qd encourage increased oral food and fluid intake will schedule outpatient 30 day event monitor and follow up with me ? D/C home today if asymptomatic Continue telemetry? Yes
--- NOTE | 2017-07-14 07:40 | Cons- Neurology ---
General Information and HPI Consulting Request Date of Consult: 07/14/17 Requested By: Lay Hines MD Reason for Consult: Possible seizure History of Present Illness: 87-year-old Citizen Of [place] speaking woman who according to records was brought in due to an unresponsive spell. Notes indicate that her daughter observed her cooking breakfast yesterday morning when she started to lean to one side. Her daughter caught her so she did not fall. She was placed in a chair. Eyes remained closed and she was unresponsive for several minutes. The patient was amnestic for the event. There was apparently no convulsive activity no tongue biting and no incontinence. No history of seizures. Admission labs indicate dehydration. Family noted that appetite is poor. Allergies/Medications Allergies: Coded Allergies: No Known Allergies (07/13/17) Home Med List: Aspirin (Ecotrin*) 81 MG TABLET.DR 1 TAB PO BID HEART/BLOOD (Reported) Atorvastatin Calcium 10 MG TABLET 1 TAB PO QPM CHOLESTEROL (Reported) Calcium Carbonate/Vitamin D3 (Calcium 500 + D Tablet) (Unknown Strength) TABLET (Unknown Dose) PO DAILY SUPPLEMENT (Reported) Hydrochlorothiazide 12.5 MG TABLET 1 TAB PO QAM DIURETIC/BP (Reported) Metoprolol Succinate 25 MG TAB 1 TAB PO DAILY HEART/BP (Reported) Mirtazapine 15 MG TABLET 1 TAB PO QPM SLEEP (Reported) Potassium Chloride 10 MEQ TABLET.ER 1 TAB PO QAM SUPPLEMENT (Reported) Current Medications: Current Medications Sig/Solomon Start time Last Medication Dose Route Stop Time Status Admin Acetaminophen 650 MG Q6P PRN 07/13 2245 AC PO Aspirin Buffered 81 MG BID 07/13 2200 AC 07/13 PO 2135 Atorvastatin Calcium 10 MG QPM 07/13 2200 AC 07/13 PO 2135 Enoxaparin Sodium 40 MG DAILY 07/13 195 AC 07/13 SC 2135 Metoprolol Succinate 12.5 MG DAILY 07/14 1000 AC PO Mirtazapine 15 MG QPM 07/14 2200 AC PO Oxycodone HCl 5 MG Q6H PRN 07/13 2245 CAN PO Oxycodone HCl 10 MG Q6P PRN 07/13 2245 DC PO Sodium Chloride 1,000 ML Q13H 07/13 1915 AC 07/13 IV 07/14 Review of Systems Review of Systems: REVIEW OF SYSTEMS: (-) = negative / normal blank = not discussed Neurologic: see HPI Eyes: (-) ENT: (-) Constitutional: (-) CV: See HPI Respiratory: (-) /Renal: (-) Musculoskeletal: (-) Skin: (-) Psychiatric: (-) Heme: (-) GI: (-) Allergy/Immune: (-) Endocrine: (-) Other: History of bilateral mastectomies Past History Travel History Traveled to [place] past 21 day No Medical History Blood Transfusion Hx: No Neurological: CVA EENT: NONE Cardiovascular: hypertension, ? IRREGULAR HEART BEAT PER EMS ? 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 Surgical History Surgical History: non-contributory Psychosocial History Smoking Status: Never Smoked ETOH Use: occasional use Illicit Drug Use: denies illicit drug use Exam & Diagnostic Data Vital Signs and I&O Vital Signs Date Time Temp Pulse Resp B/P B/P Pulse O2 O2 Flow FiO2 Mean Ox Delivery Rate 07/14 0638 98.5 65 18 112/62 95 Room Air 07/13 2337 98.4 68 16 162/80 96 Room Air 07/13 2017 98.8 70 18 132/80 94 Room Air 07/13 1926 97.8 61 20 171/70 96 Room Air 07/13 1452 98.8 61 20 160/80 97 Room Air 07/13 1322 98 Room Air 07/13 1316 62 20 172/78 97 Room Air 07/13 1211 97.6 61 18 172/74 95 Room Air Intake & Output 07/14 0800 07/14 0000 07/13 1600 Intake Total 700 200 Output Total Balance 700 200 Intake, IV 600 Intake, Oral 100 200 Patient 140 lb 140 lb Weight Weight Estimated Measurement Method Physical Exam: PHYSICAL EXAMINATION: nl = normal NT or blank = not tested GENERAL Appearance: nl Head: nl Eyes: nl ENT: nl Neck: nl Carotids: nl Lungs: nl Heart: nl Extremities: Trace edema left lower extremity NEUROLOGIC MENTAL STATUS Level of consciousness: nl Attention / Concentration: nl Memory: nt Fund of Knowledge: nt Speech / Language: nl NEUROLOGIC CRANIAL NERVES I: Olfaction: NT II: Optic nerves: nl Visual ventura: nl III: Pupils: nl Levator palpebrae: nl III, IV, : Ocular alignment: nl Extraocular motility: nl Pursuits/ saccades: nl V: Facial sensation: nl Masseter/Pterygoids: nl VII: Facial Motor: nl VIII: Hearing (finger rub): nl IX, X: Uvula and palate: nl XI: SCM, Upper trap.: nl XII: Tongue: nl MOTOR / NEUROMUSCULAR Bulk: nl Tone: nl Strength: nl aside from mild proximal left leg weakness Rapid alternating movements: nl Fine motor movements: nl Abnormal / involuntary movements: none CEREBELLAR / COORDINATION: intact SENSATION: intact to light touch DTR's symmetrically trace to absent PLANTARS: flexor GAIT: Not tested Last 48 Hours of Lab Results: Laboratory Tests 07/14 07/14 07/13 07/13 0651 0120 1925 1303 Chemistry Sodium (137 - 145 mmol/L) Pending 144 Potassium (3.5 - 5.1 mmol/L) Pending 4.3 Chloride (98 - 107 mmol/L) Pending 103 Carbon Dioxide (22 - 30 mmol/L) Pending 28 Anion Gap (5 - 16) Pending 12 BUN (7 - 17 mg/dL) Pending 41 H Creatinine (0.5 - 1.0 mg/dL) Pending 1.1 H Estimated GFR (>60 ml/min) 47 L BUN/Creatinine Ratio (7 - 25 %) Pending 37.3 H Glucose (65 - 99 mg/dL) 100 H Calcium (8.4 - 10.2 mg/dL) 9.4 Iron (37 - 170 ug/dL) 38 TIBC (265 - 497 ug/dL) 292 Ferritin (11.1 - 264 ng/mL) 97.1 Total Bilirubin (0.2 - 1.3 mg/dL) 0.7 AST (14 - 36 U/L) 26 ALT (9 - 52 U/L) 36 Alkaline Phosphatase (<127 U/L) 77 Troponin I (< 0.11 ng/ml) 0.03 0.02 0.01 Total Protein (6.3 - 8.2 g/dL) 6.6 Albumin (3.5 - 5.0 g/dL) 4.0 Globulin (1.9 - 4.2 gm/dL) 2.6 Albumin/Globulin Ratio (1.1 - 2.2 %) 1.5 TSH &T3 &Free T4 Intrp Pending Prolactin (3.0 - 18.6 ng/mL) 49.2 H Hematology CBC w Diff Pending NO MAN DIFF REQ WBC (4.8 - 10.8 /CUMM) Pending 6.3 RBC (4.20 - 5.40 /CUMM) Pending 3.68 L Hgb (12.0 - 16.0 G/DL) Pending 11.5 L Hct (37 - 47 %) Pending 34.9 L MCV (81.0 - 99.0 FL) Pending 94.7 MCH (27.0 - 31.0 PG) Pending 31.3 H RDW (11.5 - 14.5 %) Pending 13.9 Plt Count (130 - 400 /CUMM) Pending 198 MPV (7.4 - 10.4 FL) Pending 7.9 Gran % (42.2 - 75.2 %) 75.4 H Lymphocytes % (20.5 - 51.1 %) 13.1 L Monocytes % (1.7 - 9.3 %) 9.5 H Eosinophils % (0 - 5 %) 1.7 Basophils % (0.0 - 2.0 %) 0.3 Absolute Granulocytes (1.4 - 6.5 /CUMM) 4.8 Absolute Lymphocytes (1.2 - 3.4 /CUMM) 0.8 L Absolute Monocytes (0.10 - 0.60 /CUMM) 0.6 Absolute Eosinophils (0.0 - 0.7 /CUMM) 0.1 Absolute Basophils (0.0 - 0.2 /CUMM) 0 PUBS MCHC (33.0 - 37.0 G/DL) Pending 33.0 Imaging/Other Studies: PATIENT: LASHAUN CLARK PRESENT AGE: 87 PATIENT ACCOUNT NO: [id number] : 30 LOCATION: [facility] ORDERING PHYSICIAN: Jonathan Romano MD SERVICE DATE: 07/13/176 EXAM TYPE: CAT - CT HEAD WO IV CONTRAST EXAMINATION: CT HEAD WITHOUT CONTRAST CLINICAL INFORMATION: Near syncope. History of cardiac arteries. Assess for CVA or mass. COMPARISON: CT scans of the head 07/25/2008 and 02/29/2008. TECHNIQUE: Contiguous axial imaging was performed from the skull base to vertex without intravenous administration of contrast. DLP: 620.91 mGy-cm FINDINGS: There is no evidence of acute intracranial hemorrhage or territorial infarction. No abnormal mass effect or midline shift is seen. Sanchez to white matter differentiation is well preserved. No extra-axial fluid collections are identified. There is mild increase in the prominence of the ventricles without commensurate sulcal prominence when compared to the prior studies which raises the possibility of normal pressure hydrocephalus in the correct clinical setting. *There are areas of low attenuation in the right caudate head consistent with sequelae of chronic lacunar infarcts, with ex vacuo dilatation of the anterior horn of the right lateral ventricle, demonstrated on prior imaging. *There is low-attenuation in the posterior right basal ganglia consistent with an old infarct. There have been bilateral lens extractions. *There are extensive atheromatous calcifications of the cavernous internal carotid arteries bilaterally. There are no acute osseous findings. There are degenerative changes of the bilateral temporomandibular joints. The soft tissues are normal. The mastoid air cells and visualized portions of the paranasal sinuses are well aerated. IMPRESSION: 1. There is interval increase in the prominence of the ventricles without commensurate sulcal prominence, raising the possibility of normal pressure hydrocephalus in the correct clinical setting. 2. There are sequelae of chronic infarcts in multiple areas as described above. Assessment/Plan Assessment: Likely syncope due to orthostasis Doubt seizure Doubt TIA, though history of subcortical strokes on brain imaging. Likely explains relative left leg weakness. Already on aspirin and statin therapy Recommendations: Consider carotid Doppler ultrasound Monitor orthostatics Hydrate Mobilize out of bed Consult Acknowledgment - Thank you for your consult request. Consult Acknowledgment - Thank you for your consult request.
--- NOTE | 2017-07-14 08:08 | PN- Housestaff ---
See Addendum Subjective Follow-up For: syncope Tele-Events Since Last Visit: SR, 60-70 Subjective: No overnighrt events. FEels good this morning, no pain Review of Systems Constitutional: Reports: no symptoms. EENTM: Reports: no symptoms. Cardiovascular: Reports: no symptoms. Respiratory: Reports: no symptoms. Gastrointestinal: Reports: no symptoms. Genitourinary: Reports: no symptoms. Musculoskeletal: Reports: no symptoms. Skin: Reports: no symptoms. Neurological/Psychological: Reports: no symptoms. Hematologic/Endocrine: Reports: no symptoms. Immunologic/Allergic: Reports: no symptoms. Objective Last 24 Hrs of Vital Signs/I&O Vital Signs Date Time Temp Pulse Resp B/P B/P Pulse O2 O2 Flow FiO2 Mean Ox Delivery Rate 07/14 0638 98.5 65 18 112/62 95 Room Air 07/13 2337 98.4 68 16 162/80 96 Room Air 07/13 2017 98.8 70 18 132/80 94 Room Air 07/13 1926 97.8 61 20 171/70 96 Room Air 07/13 1452 98.8 61 20 160/80 97 Room Air 07/13 1322 98 Room Air 07/13 1316 62 20 172/78 97 Room Air 07/13 1211 97.6 61 18 172/74 95 Room Air Intake & Output 07/14 1600 07/14 0800 07/14 0000 Intake Total 700 200 Output Total Balance 700 200 Intake, IV 600 Intake, Oral 100 200 Patient 140 lb Weight Physical Exam General Appearance: Alert, Oriented X3, Cooperative, No Acute Distress Cardiovascular: Regular Rate, Normal S1, Normal S2 Lungs: Clear to Auscultation Abdomen: Normal Bowel Sounds, Soft, No Tenderness Extremities: edema Current Medications: Current Medications Sig/Solomon Start time Last Medication Dose Route Stop Time Status Admin Acetaminophen 650 MG Q6P PRN 07/13 2245 AC PO Aspirin Buffered 81 MG BID 07/13 2199 AC 07/13 PO 213 Atorvastatin Calcium 10 MG QPM 07/13 2200 AC 07/13 PO 2135 Enoxaparin Sodium 40 MG DAILY 07/13 1952 AC 07/13 SC 2135 Metoprolol Succinate 12.5 MG DAILY 07/14 1000 AC PO Mirtazapine 15 MG QPM 07/14 2200 AC PO Oxycodone HCl 5 MG Q6H PRN 01/17 2245 CAN PO Oxycodone HCl 10 MG Q6P PRN 07/13 2244 DC PO Sodium Chloride 1,000 ML Q13H 07/13 1914 AC 07/13 IV 07/14 Last 24 Hrs of Lab/Vick Results Last 24 Hrs of Labs/Mics: Laboratory Tests 07/14/17 0651: Sodium Pending, Potassium Pending, Chloride Pending, Carbon Dioxide Pending, Anion Gap Pending, BUN Pending, Creatinine Pending, BUN/Creatinine Ratio Pending , TSH &T3 &Free T4 Intrp Pending, CBC w Diff Pending, WBC Pending, RBC Pending, Hgb Pending, Hct Pending, MCV Pending, MCH Pending, RDW Pending, Plt Count Pending, MPV Pending, PUBS MCHC Pending 07/14/17 0120: Troponin I 0.03 07/13/17 1925: Iron 38, TIBC 292, Ferritin 97.1, Troponin I 0.02 07/13/17 1303: Anion Gap 12, Estimated GFR 47 L, BUN/Creatinine Ratio 37.3 H, Glucose 100 H, Calcium 9.4, Total Bilirubin 0.7, AST 26, ALT 36, Alkaline Phosphatase 77, Troponin I 0.01, Total Protein 6.6, Albumin 4.0, Globulin 2.6, Albumin/Globulin Ratio 1.5, Prolactin 49.2 H, CBC w Diff NO MAN DIFF REQ, RBC 3.68 L, MCV 94.7, MCH 31.3 H, RDW 13.9, MPV 7.9, Gran % 75.4 H, Lymphocytes % 13.1 L, Monocytes % 9.5 H, Eosinophils % 1.7, Basophils % 0.3, Absolute Granulocytes 4.8, Absolute Lymphocytes 0.8 L, Absolute Monocytes 0.6, Absolute Eosinophils 0.1, Absolute Basophils 0, PUBS MCHC 33.0 Assessment/Plan Assessment: is an 87-year-old female with past medical history of CVA, hypertension, and bilateral breast cancer in [id number] status post chemotherapy who presents with syncope. Problem List: 1. Syncope 2. Normocytic anemia #Syncope: The differential diagnosis for this includes arrhythmia, seizure, orthostasis, and neurocardiogenic syncope. The patient has history of conduction abnormalities and is on multiple medications that can affect it. This history includes no prodrome but she was confused afterwards and this may have been postictal state. She has had poor by mouth intake recently and is dehydrated. Orthostatic vitals were positive. Prolactin was also elevated. EKG and troponins since she has been negative. -Appreciate cardiology recommendations -TTE -Telemetry monitoring -Metoprolol 12.5 once a day -Appreciate neurology recommendations -EEG -carotid doppler -recheck orthostats -Consider further hydration #Normocytic anemia: Mild. Iron studies negative. -Continue to monitor #Chronic medical problems: -Continue home atorvastatin, aspirin, mirtazapine, hydrochlorothiazide, vitamin D, calcium DVT prophylaxis with enoxaparin Regular diet Full code Problem List: 1. Syncope Pain Ratin Pain Location: no pain Pain Goal: Remain pain free Pain Plan: see a/p Tomorrow's Labs & Rationales: on
[2017-07-14 08:22] LABS: ABSOLUTE BASOPHIL COUNT 0 /CUMM (0.0-0.2); ABSOLUTE EOSINOPHIL COUNT 0.2 /CUMM (0.0-0.7); ABSOLUTE GRANULOCYTE CT 3.7 /CUMM (1.4-6.5); ABSOLUTE LYMPH COUNT 1.3 /CUMM (1.2-3.4); ABSOLUTE MONOCYTE COUNT 0.6 /CUMM (0.10-0.60); BASOPHIL % 0.5 % (0.0-2.0); EOSINOPHIL % 2.7 % (0-5); GRANULOCYTE % 64.4 % (42.2-75.2); HEMATOCRIT 31.2 % (37-47); MEAN CORPUSCULAR HGB 31.6 PG (27.0-31.0); MEAN CORPUSCULAR HGB CONC 33.3 G/DL (33.0-37.0); MEAN CORPUSCULAR VOLUME 94.9 FL (81.0-99.0); MEAN PLATELET VOLUME 8.6 FL (7.4-10.4); PLATELET COUNT 156 /CUMM (130-400); RBC DISTRIBUTION WIDTH 13.9 % (11.5-14.5); RED BLOOD CELL CT 3.29 /CUMM (4.20-5.40); WHITE BLOOD CELL COUNT 5.8 /CUMM (4.8-10.8)
--- NOTE | 2017-07-14 10:29 | PN- Student ---
Subjective Subjective: C.C : Patient passed out. History:Patient ,Patient family Limitations:Patient speaks [place]MR[place] only. 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 Patient presents to the ED for a fainting episode that occured shortly before arrival.The event was witnessed by the patient's daughter and son-in-law which who was present at the time of interview.Majority of the history was reported and translated to the patient by her daughter as Elza speaks no [place] and strictly CYMRO.According to the family the patient was cooking breakfast this morning when the daughter noticed that she started to lean to one side.The daughter caught her before she could fall and her who was home at the time moved the patient to a nearby chair.Daughter reports that the mother was out of it,passed out,eyes closed for 2-3 minutes before once again becoming responsive.She also noted that while on the chair the patient's body was "floppy " and she was sliding off so they moved her to a couch.At the time of the even they did not notice any jerks,tongue but or bowel incontinence.The patient was disoriented and confused for approximately 10-20 minutes after the event and became cognizant of her environment around the time the EMS arrived.Patient denies any dizzyness,chest pain,palpitations or visual changes before the episode.Patient also has poor recall of what happened to her.Patient has not had any recent sick contacts and recieved her flu shot for this season.Patient has good compliance with her daily medications. Review of Systems Constitutional: Reports: no symptoms. EENTM: Reports: no symptoms. Cardiovascular: Reports: no symptoms. Respiratory: Reports: no symptoms. GI: Reports: no symptoms Genitourinary: Reports: no symptoms. Musculoskeletal: Reports: no symptoms. Skin: Reports: no symptoms. Neurological/Psychological: Reports: see HPI. Hematologic/Endocrine: Reports: no symptoms. Immunologic/Allergic: Reports: no symptoms. All Other Systems: Reviewed and Negative Allergies:NKDA Home Med list Atorvastatin Calcium 10 MG TABLET 1 TAB PO QPM CHOLESTEROL (Reported) Calcium Carbonate/Vitamin D3 (Calcium 500 + D Tablet) (Unknown Strength) TABLET (Unknown Dose) PO DAILY SUPPLEMENT (Reported) Dipyridamole W/ Aspirin (Aggrenox 25 MG-200 MG Capsule) 25 MG-200 MG CPMP.12HR 1 CAP PO BID Blood thin (Reported) Hydrochlorothiazide 12.5 MG TABLET 1 TAB PO QAM DIURETIC/BP (Reported) Metoprolol Succinate 25 MG TAB 1 TAB PO DAILY HEART/BP (Reported) Mirtazapine 15 MG TABLET 1 TAB PO QPM SLEEP (Reported) Potassium Chloride 10 MEQ TABLET.ER 1 TAB PO QAM SUPPLEMENT (Reported) Medical History Neurological: CVA EENT: NONE Cardiovascular: hypertension, LBBB,PVC,CAD Respiratory: NONE Gastrointestinal: NONE Hepatic: NONE Renal: NONE Musculoskeletal: NONE Psychiatric: NONE Endocrine: NONE Blood Disorders: NONE Cancer(s): Bilateral Breast Cancer INFORMATICIST/Reproductive: NONE Surgical History Surgical History: non-contributory Psychosocial History Smoking Status: Never Smoked ETOH Use: occasional use Illicit Drug Use: denies illicit drug use Patient lives at home with her daughter and son in law.Is able to walk with the aid of a cane but overall lives a very sedentary lifestyle.Daughter reports that Elza has a poor appetite and eats little solid food,she does not drink much water daily and usually her only liquids are tea.She has good compliance with all her meds. Travel History:No recent travel Objective Objective: Vital Signs Date Time Temp Pulse Resp B/P B/P Pulse O2 O2 Flow FiO2 Mean Ox Delivery Rate 07/14 1220 64 150/80 07/14 0832 64 120/64 07/14 0638 98.5 65 18 112/62 95 Room Air 07/13 2337 98.4 68 16 162/80 96 Room Air 07/13 2017 98.8 70 18 132/80 94 Room Air 07/13 1926 97.8 61 20 171/70 96 Room Air ED Intake and Output 07/14 0000 07/13 1200 Intake Total 200 Output Total Balance 200 Intake, Oral 200 Patient 140 lb Weight Weight Estimated Measurement Method Physical Exam: Patient is cooperative but difficult to evaluate and she has problems follwing instructions secondary to language barrier. General Appearance Alert, Oriented X3, Cooperative, No Acute Distress HEENT difficult to assess eye movements due to language barrier and miscommunication,neck supple no lymphadenopathy,moist mucosa. Cardiovascular irregular, systolic murmur Lungs Clear to Auscultation, Abdomen Normal Bowel Sounds, Soft, non tender Neurological Normal Speech, Strength at 5/5 X4 Ext, Normal Tone, Sensation Intact, Cranial Nerves 3-12 NL Extremities Normal Pulses, nonpitting edema Orthostatic Hypotention changes noted. B/P Lying 172/78 Pulse 62 B/P Sitting 177/80 Pulse 67 B/P Standing 154/65 Pulse 67 Results Results: Laboratory Tests 07/13/17 1925: Iron 38, TIBC 292, Ferritin 97.1, Troponin I 0.02 07/13/17 1303: Anion Gap 12, Estimated GFR 47 L, BUN/Creatinine Ratio 37.3 H, Glucose 100 H, Calcium 9.4, Total Bilirubin 0.7, AST 26, ALT 36, Alkaline Phosphatase 77, Troponin I 0.01, Total Protein 6.6, Albumin 4.0, Globulin 2.6, Albumin/Globulin Ratio 1.5, Prolactin 49.2 H, CBC w Diff NO MAN DIFF REQ, RBC 3.68 L, MCV 94.7, MCH 31.3 H, RDW 13.9, MPV 7.9, Gran % 75.4 H, Lymphocytes % 13.1 L, Monocytes % 9.5 H, Eosinophils % 1.7, Basophils % 0.3, Absolute Granulocytes 4.8, Absolute Lymphocytes 0.8 L, Absolute Monocytes 0.6, Absolute Eosinophils 0.1, Absolute Basophils 0, PUBS MCHC 33.0 CXR: No acute cardiopulmonary disease CT head: 1. There is interval increase in the prominence of the ventricles without commensurate sulcal prominence, raising the possibility of normal pressure hydrocephalus in the correct clinical setting. 2. There are sequelae of chronic infarcts in multiple areas as described above. 3. There are no acute bleeds or territorial infarcts. Assessment/Plan Assessment: Mrs. 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 On presentation, vital signs were T 98.8, HR 61, RR 20, BP 160/78, saturating 97 % on room air. Laboratories are significant for white blood cell count 6.3, 75.4 % granulocytes, hemoglobin 11.5, normal BEP, negative LFTs, troponin 0.01. Chest x-ray and head CT were negative for any acute abnormalities. To be placed on telemetry and observation. 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 but unlikely due to her lack of visible tremors or urinary incontinence or tongue biting and positive orthostatic findings but still needs to be ruled out.The CT findings of interval increase in the prominence of the ventricles raises the possibility of normal pressure hydrocephalus which could mimick seizure or syncopal evidence.Patient is not mobile enough for family to determine if patient had any recent gait or balance changes,deny any dementia or mental status changes recently and no report of uriniary incontenece making a diagnosis of PNH unlikely.Given the patients + orthostatic findings it is recommended that she is placed on telemetry and observation. -telemetry for cardiac monitoring -EKG and troponins x3 -discontinue hydrocholorthiazide and encourage the patient to drink fluids -reduce metoprolol dose to 12.5mg -ECHO -Cardio consult -Repeat orthostatic vitals in the AM -Hydration 75 ml normal saline for 1L -prolactin lab -EEG -consider neurology consult FULL CODE Heart healthy Diet DVT prophylaxsis:Enoxaparin -
[2017-07-14 12:20] VITALS: BP 150/80
--- NOTE | 2017-07-14 13:35 | Patient Discharge Instructions ---
Discharge Instructions General Discharge Information You were seen/treated for: Syncope Watch for these problems: Chest pain, shortness of breath, fever Special Instructions: Please take all medications as directed. Please follow-up with cardiology. Please follow-up with primary care. Diet Continue normal diet: Yes Activity Full Activity/No Limits: Yes Acute Coronary Syndrome Inclusion Criteria At DC or during hospital stay patient has or had the following: ACS DIAGNOSIS No Discharge Core Measures Meds if any: Prescribed or Continued at Discharge Meds if any: NOT Prescribed or Continued at Discharge Congestive Heart Failure Inclusion Criteria At DC or during hospital stay patient has or had the following: CHF DIAGNOSIS No Discharge Core Measures Meds if any: Prescribed or Continued at Discharge Meds if any: NOT Prescribed or Continued at Discharge Cerebrovascular accident Inclusion Criteria At DC or during hospital stay patient has or had the following: CVA/TIA Diagnosis No Discharge Core Measures Meds if any: Prescribed or Continued at Discharge Meds if any: NOT Prescribed or Continued at Discharge Venous thromboembolism Inclusion Criteria VTE Diagnosis No VTE Type NONE VTE Confirmed by (Test) NONE Discharge Core Measures - Per Current guidelines, there needs to be overlap - treatment for the first 5 days of Warfarin therapy. - If discharged on Warfarin prior to 5 days of - overlap therapy, the patient will need to be - assessed for post discharge needs including - *Post discharge parental anticoagulation - *Warfarin and/or parental anticoagulation education - *Follow up date to check INR post discharge At least 5 days overlap therapy as Inpatient No Meds if any: Prescribed or Continued at Discharge Note: Overlap Therapy is Warfarin and Anticoagulant Meds if any: NOT Prescribed or Continued at Discharge
--- NOTE | 2017-07-14 14:02 | ULTRASOUND REPORT ---
EXAMINATION: DUPLEX BILATERAL CAROTID ULTRASOUND CLINICAL INFORMATION: Syncope. COMPARISON: Carotid ultrasound and MRA examinations dated 03/01/2008. TECHNIQUE: Bilateral carotid US was performed using real-time ultrasound and Doppler techniques (integrating B-mode 2D vascular images, Doppler spectral analysis and color flow Doppler imaging). These techniques were utilized to interrogate the extracranial carotid and vertebral arteries bilaterally. The degree of stenosis is based off criteria similar to NASCET. FINDINGS: Right side: 1. Moderate hyperechoic plaque is seen in the ECA/ICA region. 2. The common carotid artery velocity is 46 cm/s. 3. The proximal internal carotid artery velocities are 164 cm/s systolic and 29 cm/s diastolic. 4. The external carotid artery velocity is 142 cm/s. Left side: 1. Moderate hyperechoic plaque is seen in the ECA/ICA region. 2. The common carotid artery velocity is 99 cm/s. 3. The proximal internal carotid artery velocities are 161 cm/s systolic and 31 cm/s diastolic. 4. The external carotid artery velocity is 113 cm/s. ADDITIONAL FINDINGS: 1. The vertebral arteries show antegrade flow. 2. A 3.0 x 1.9 x 2.0 cm left thyroid nodule is seen. IMPRESSION: 1. RIGHT: Moderate, hemodynamically significant stenosis of the proximal right internal carotid artery corresponding to a 50-79% stenosis by velocity criteria. 2. LEFT: Moderate, hemodynamically significant stenosis of the proximal left internal carotid artery corresponding to a 50-79% stenosis by velocity criteria. 3. Antegrade flow seen in the bilateral vertebral arteries. 4. A large right thyroid lobe nodule seen. Consider dedicated thyroid ultrasound for more complete evaluation.
[2017-07-14] MEDS ORDERED: AGGRENOX 25 MG1 EACH PO (15:03)
--- NOTE | 2017-07-14 19:23 | ELECTROENCEPHALOGRAM REPORT ---
Electroencephalogram Report Electroencephalogram Results Date of service: 07/14/17 Attending MD: Bran Buckner MD Form Building Supervisor: Bryanna Arroyo EEG Number: [id number] Test Utilizes: 10-20 system, 21 lead 18 channel digital recording Pertinent Hx/Physical/Neuro Findings/Clin Diagnosis: loss of consciousness Inpatient Medications: Current Medications Sig/Solomon Start time Last Medication Dose Route Stop Time Status Admin Acetaminophen 650 MG Q6P PRN 07/13 2245 DCD PO Aspirin Buffered 81 MG BID 07/13 2200 DC 07/14 PO 0830 Atorvastatin Calcium 10 MG QPM 07/13 2200 DCD 07/13 PO 2135 Dipyridamole/Aspirin 1 CAP BID 07/14 1435 DCD 07/14 PO 1558 Enoxaparin Sodium 40 MG DAILY 07/13 195 DCD 07/14 SC 0832 Metoprolol Succinate 12.5 MG DAILY 07/14 1000 DCD 07/14 PO 0832 Mirtazapine 15 MG QPM 07/14 2200 DCD PO Oxycodone HCl 5 MG Q6H PRN 07/13 2245 CAN PO Oxycodone HCl 10 MG Q6P PRN 07/13 2245 DC PO Patient Medication 1 ED ONE ONE 07/14 1145 DC Teaching ED 07/14 1146 Polyethylene Glycol 17 GM ONCE ONE 07/14 1545 DC 07/14 PO 07/14 1546 1558 Sodium Chloride 1,000 ML Q13H 07/13 1915 DC 07/13 IV 07/14 0814 2036 Interpretation: EEG in wake stateeg in wake state Indication : syncope Background is 9 cps activity posteriorly Low voltage 20-24 cps activity frontally No focal or epileptiform activities Photic stim: no abnormalities Impression: Normal EEG in wake state
--- NOTE | 2017-07-15 12:16 | ECHOCARDIOGRAM REPORT ---
LASHAUN CLARK Age: 87 : 1930 Gender: F Exam Date: 07/14/2017 09:56 Exam Location: 1 [address] Ht (in): 60 Wt (lb): 140 BSA: 1.66 BP: 112 / 62 Ordering Physician: Isaiah Griffith MD Referring Physician: Isaiah Griffith MD Technologist: Luis Fernando Rojas [facility] Room Number: 176-1 Indications: VALVULAR DISEASE Rhythm: Sinus Technical Quality: Fair FINDINGS Left Ventricle Normal size left ventricle. Normal left ventricular wall thickness. Low normal left ventricular systolic function. Left ventricular ejection fraction is estimated at 50-55%. No obvious regional wall motion abnormalities. Abnormal relaxation filling pattern of the left ventricle for age (stage 1 diastolic dysfunction). Right Ventricle Normal right ventricular size and function. Right Atrium Normal right atrial size. Left Atrium Normal left atrial size. Mitral Valve Mitral valve thickened. Mild mitral annular calcification. Mild mitral regurgitation. Aortic Valve Diffuse thickening of the aortic valve cusps with reduced excursion. Mild aortic stenosis. Tricuspid Valve Tricuspid valve not well visualized, grossly normal. Mild tricuspid regurgitation. Right ventricular systolic pressure estimated to be elevated at 47 mmHg. Pulmonic Valve Pulmonic valve not well visualized, grossly normal. Mild pulmonic regurgitation. Pericardium No pericardial effusion. Great Vessels Normal size aortic root and proximal ascending aorta. CONCLUSIONS Normal size left ventricle. Low normal left ventricular systolic function. Left ventricular ejection fraction is estimated at 50-55%. Abnormal relaxation filling pattern of the left ventricle for age (stage 1 diastolic dysfunction). Mild mitral regurgitation. Mild aortic stenosis. Mild tricuspid regurgitation. Right ventricular systolic pressure estimated to be elevated at 47 mmHg. Mild pulmonic regurgitation. Marques Becerra M.D. (Electronically Signed) Final Date: 15 July 2017 12:15 MEASUREMENTS (Male / Female) Normal Values 2D ECHO LV Diastolic Diameter PLAX 4.3 cm 4.2 - 5.9 / 3.9 - 5.3 cm LV Systolic Diameter PLAX 3.2 cm 2.1 - 4.0 cm LV Fractional Shortening PLAX 25.6 % 25 - 46 % LV Ejection Fraction 2D Teich 50.7 % IVS Diastolic Thickness 0.9 cm LVPW Diastolic Thickness 0.9 cm LV Relative Wall Thickness 0.4 RV Internal Dim ED PLAX 2.6 cm 1.9 - 3.8 cm LVOT Diameter 1.8 cm Aortic Root Diameter 2.6 cm LA Systolic Diameter LX 3.5 cm 3.0 - 4.0 / 2.7 - 3.8 cm LA Volume 46.0 cm 18 - 58 / 22 - 52 cm Ascending Aorta Diameter 3.1 cm DOPPLER AV Peak Velocity 211.0 cm/s AV Peak Gradient 17.8 mmHg AV Mean Velocity 140.0 cm/s AV Mean Gradient 9.0 mmHg AV Velocity Time Integral 48.7 cm LVOT Peak Velocity 96.3 cm/s LVOT Peak Gradient 3.7 mmHg LVOT Mean Velocity 65.9 cm/s LVOT Mean Gradient 2.0 mmHg LVOT Velocity Time Integral 24.4 cm LVOT Stroke Volume 62.1 cm AV Area Cont Eq vti 1.3 cm AV Area Cont Eq pk 1.2 cm MV Peak Velocity 124.0 cm/s MV Peak Gradient 6.2 mmHg MV Mean Velocity 68.0 cm/s MV Mean Gradient 2.0 mmHg Mitral E Point Velocity 78.0 cm/s Mitral A Point Velocity 120.0 cm/s Mitral E to A Ratio 0.7 MV PHT Velocity 95.3 cm/s MV Deceleration [place] 234.0 cm/s MV Pressure Half Time 122.2 ms MV Area PHT 1.8 cm MV Deceleration Time 225.0 ms TR Peak Velocity 324.0 cm/s TR Peak Gradient 42.0 mmHg Right Atrial Pressure 5.0 mmHg Pulmonary Artery Systolic Pressu 47.0 mmHg Right Ventricular Systolic Press 47.0 mmHg PV Peak Velocity 99.3 cm/s PV Peak Gradient 3.9 mmHg PV Mean Velocity 64.3 cm/s PV Mean Gradient 2.0 mmHg PV Velocity Time Integral 23.2 cm LV E' Lateral Velocity 7.1 cm/s Mitral E to LV E' Lateral Ratio 11.0 LV E' Septal Velocity 6.8 cm/s Mitral E to LV E' Septal Ratio 11.4
== END 2017-07-14 16:33 ==
LOC: ERH 12:00 → ERHI 17:42 → 1NO 17:42 → ENRESERV 18:36 → ENTRNSPT 19:35 → EDTRNSPTSTS 19:47 → 1NO 20:06 → CMPTRNSPT 20:17 → 1NO 07-14 07:47 → ENTRNSPT 07-14 16:17 → EDTRNSPTSTS 07-14 16:24 → 1NO 07-14 16:33 → CMPTRNSPT 07-14 16:43
PROVIDERS: Emergency Medicine; Internal Medicine; Student in an Organized Health Care Education/Training Program
DX: R55 Syncope and collapse (principal); I42.9 Cardiomyopathy, unspecified; E78.5 Hyperlipidemia, unspecified; G47.00 Insomnia, unspecified; I25.10 Atherosclerotic heart disease of native coronary artery without angina pectoris; I49.3 Ventricular premature depolarization; Z86.73 Personal history of transient ischemic attack (TIA), and cerebral infarction without residual deficits; I10 Essential (primary) hypertension; Z85.3 Personal history of malignant neoplasm of breast; D64.9 Anemia, unspecified; Z79.82 Long term (current) use of aspirin; R01.1 Cardiac murmur, unspecified
CPT/HCPCS: 6020; 36415; 71045; 82436; 93005; 93010; 93306; 95816; 96372; G0378; J1650